=== PATIENT | male | born 1935 | race Caucasian/White ===

== ENCOUNTER 2019-12-19 13:51 | Emergency (ER) | payer MEDICARE, OTHER ==
[2019-12-19] MEDS ORDERED: Sodium Chloride 0.9% 10 ML Syringe FLUSH PRN ×2 (14:04)
[2019-12-19] MEDS ORDERED: Aspirin 325 MG Tab.EC PO ONE (14:05)
[2019-12-19] MEDS ORDERED: Sodium Chloride 0.9% 10 ML Syringe FLUSH ONE (14:07)
--- NOTE | 2019-12-19 14:10 | EDM.PDOC ---
ED HPI GENERAL MEDICAL PROBLEM - General Chief Complaint: Neurological Problem Stated Complaint: left arm & face numb Time Seen by Provider: 12/19/19 14:04 Source of Information: Reports: Patient, RN Notes Reviewed History Limitations: Reports: No Limitations - History of Present Illness INITIAL COMMENTS - FREE TEXT/NARRATIVE: 84-year-old gentleman presents emergency department with a complaint of left- sided weakness, he states the symptoms started approximately 2 hours prior when he had difficulty walking had some slurred speech at home as well. Presented to the emergency department for further evaluation. At this time he feels his speech has improved but he is having trouble with difficulty moving his left arm and he feels like he has difficulty getting his left leg to do what he intends - Related Data Allergies Allergy/AdvReac Type Severity Reaction Status Date / Time No Known Allergies Allergy Verified 12/19/19 14:24 Home Meds: Home Meds . [Unable to Verify Home Med List] 12/19/19 [History] Past Medical History Cardiovascular History: Reports: Afib, Hypertension Social & Family History - Tobacco Use Smoking Status *Q: Former Smoker ED ROS GENERAL - Review of Systems Review Of Systems: See Below Constitutional: Reports: No Symptoms HEENT: Reports: No Symptoms Respiratory: Reports: No Symptoms Cardiovascular: Reports: No Symptoms GI/Abdominal: Reports: No Symptoms : Reports: No Symptoms Musculoskeletal: Reports: No Symptoms Neurological: Reports: Numbness, Tingling, Trouble Speaking, Weakness (Left side) ED EXAM, NEURO - Physical Exam Exam: See Below Text/Narrative:: Cranial nerves II test with pupillary light reflex 4 mm to 2 mm bilaterally, CN III test pupillary constriction, lid elevation and eye abduction bilaterally, CN IV downward movement of eyes bilaterally, CN V good jaw movement, CN lateral deviation of the eyes bilaterally to finger movement, CN VII symmetrical smile shows teeth without difficulty, CN VIII pass finger rub to ears bilaterally, CN IX adequate voice and tone, CN X adequate voice and tone no difficulty swallowing, CN XI can shrug shoulders without difficulty, CN XII can stick tongue out without difficulty, cranial nerves II to XII intact as tested, power is 5 out 5 in upper and lower extremities, patellar reflex, biceps reflex +2 can do finger to nose however because of shoulder injury on the left side he has some difficulty with [id number] will demonstrate past-pointing, no dysdiadochokinesis, rapid alternating movements are sufficient on the right however slowed on the left , Romberg is negative, his gait is wide-based and shuffling, he does demonstrate a pronator drift on the left side Exam Limited By: No Limitations General Appearance: Alert, WD/WN, No Apparent Distress Throat/Mouth: Normal Inspection, Normal Lips, Normal Teeth, Normal Gums, Normal Oropharynx, Normal Voice, No Airway Compromise Head Exam: Atraumatic, Normocephalic Neck: Normal Inspection, Supple, Non-Tender, Full Range of Motion Respiratory/Chest: No Respiratory Distress, Lungs Clear, Normal Breath Sounds, No Accessory Muscle Use, Chest Non-Tender Cardiovascular: No Murmur, Irregularly Irregular GI/Abdominal: Soft, Non-Tender Course - Vital Signs Last Recorded V/S: Last Vital Signs Temp 97 F 12/19/19 14:17 Pulse 74 12/19/19 14:17 Resp 16 12/19/19 14:17 BP 135/75 12/19/19 14:17 Pulse Ox 99 12/19/19 14:17 - Orders/Labs/Meds Orders: Active Orders 24 hr Category Date Time Status EKG Documentation Completion [RC] ASDIRECTED Care 12/19/19 15:22 Active Peripheral IV Care [RC] . DIRECTED Care 12/19/19 14:05 Active Iopamidol [Isovue-370 (76%)] Med 12/19/19 14:15 Active 100 ml IV . DIRECTED Sodium Chloride 0.9% [Normal Saline] 100 ml Med 12/19/19 14:15 Active IV ASDIRECTED Sodium Chloride 0.9% [Saline Flush] Med 12/19/19 14:04 Active 10 ml FLUSH ASDIRECTED PRN Sodium Chloride 0.9% [Saline Flush] Med 12/19/19 14:04 Active 10 ml FLUSH ASDIRECTED PRN Peripheral IV Insertion Adult [OM.PC] Urgent Oth 12/19/19 14:04 Ordered EKG 12 Lead [EK] Stat Ther 12/19/19 15:22 Ordered Medication Orders Sodium Chloride (Normal Saline) 100 mls @ 3 mls/sec IV ASDIRECTED JEAN Iopamidol (Isovue-370 (76%)) 100 ml IV . DIRECTED JEAN Sodium Chloride (Saline Flush) 10 ml FLUSH ASDIRECTED PRN PRN Reason: Keep Vein Open Sodium Chloride (Saline Flush) 10 ml FLUSH ASDIRECTED PRN PRN Reason: Keep Vein Open Labs: Laboratory Tests 12/19/19 12/19/19 12/19/19 Range/Units 14:18 14:18 14:18 WBC 6.0 (4.5-11.0) K/uL RBC 4.49 (4.30-5.90) M/uL Hgb 13.3 (12.0-15.0) g/dL Hct 42.0 (40.0-54.0) % MCV 94 (80-98) fL MCH 30 (27-31) pg MCHC 32 (32-36) % Plt Count 169 (150-400) K/uL Neut % (Auto) 70 H (36-66) % Lymph % (Auto) 20 L (24-44) % Jennings % (Auto) 8 H (2-6) % Eos % (Auto) 1 L (2-4) % Baso % (Auto) 0 (0-1) % PT 24.1 H (9.5-12.0) sec INR 2.34 H (0.80-1.20) APTT 34.3 (27.0-36.0) sec Sodium 145 (140-148) mmol/L Potassium 3.6 (3.6-5.2) mmol/L Chloride 105 (100-108) mmol/L Carbon Dioxide 32 (21-32) mmol/L Anion Gap 8.3 (5.0-14.0) mmol/L BUN 24 H (7-18) mg/dL Creatinine 1.1 (0.8-1.3) mg/dL Est Cr Clr Drug Dosing 49.10 mL/min Estimated GFR (MDRD) > 60 (>60) Glucose 98 (74-106) mg/dL Calcium 8.8 (8.5-10.1) mg/dL Total Bilirubin 0.5 (0.2-1.0) mg/dL AST 22 (15-37) U/L ALT 30 (12-78) U/L Alkaline Phosphatase 81 (46-116) U/L Troponin I < 0.017 (0.000-0.056) ng/mL Total Protein 6.4 (6.4-8.2) g/dL Albumin 3.2 L (3.4-5.0) g/dL Globulin 3.2 (2.3-3.5) g/dL Albumin/Globulin Ratio 1.0 L (1.2-2.2) Meds: Medications Generic Name Dose Route Start Last Admin Trade Name Freq PRN Reason Stop Dose Admin Sodium Chloride 100 mls @ 3 mls/sec 12/19/19 14:15 Normal Saline IV ASDIRECTED JEAN Iopamidol 100 ml 12/19/19 14:15 Isovue-370 (76%) IV . DIRECTED JEAN Sodium Chloride 10 ml 12/19/19 14:04 Saline Flush FLUSH ASDIRECTED PRN Keep Vein Open Sodium Chloride 10 ml 12/19/19 14:04 Saline Flush FLUSH ASDIRECTED PRN Keep Vein Open Discontinued Medications Generic Name Dose Route Start Last Admin Trade Name Freq PRN Reason Stop Dose Admin Aspirin 325 mg 12/19/19 14:05 12/19/19 14:15 Ecotrin PO 12/19/19 14:06 325 mg ONETIME ONE Administration Sodium Chloride 10 ml 12/19/19 14:07 12/19/19 14:15 Saline Flush FLUSH 12/19/19 14:08 10 ml ONETIME ONE Administration Departure - Departure Time of Disposition: 15:58 Disposition: Home, Self-Care 01 Condition: Fair 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 - Discharge Information Referrals: PCP,None [Primary Care Provider] - Forms: ED Department Discharge Additional Instructions: Continue with your current medications, please follow-up with your primary care provider next 3 to 5 days for reevaluation call or return to the emergency department worsening of symptoms Sepsis Event Note (ED) - Focused Exam Vital Signs: Vital Signs Temp Pulse Resp BP Pulse Ox 12/19/19 14:17 97 F 74 16 135/75 99 12/19/19 14:02 97 F 74 16 135/75 99 - My Orders Last 24 Hours: My Active Orders 12/19/19 14:04 Sodium Chloride 0.9% [Saline Flush] 10 ml FLUSH ASDIRECTED PRN Sodium Chloride 0.9% [Saline Flush] 10 ml FLUSH ASDIRECTED PRN Peripheral IV Insertion Adult [OM.PC] Urgent 12/19/19 14:05 Peripheral IV Care [RC] . DIRECTED 12/19/19 14:15 Iopamidol [Isovue-370 (76%)] 100 ml IV . DIRECTED Sodium Chloride 0.9% [Normal Saline] 100 ml IV ASDIRECTED 12/19/19 15:22 EKG Documentation Completion [RC] ASDIRECTED EKG 12 Lead [EK] Stat - Assessment/Plan Last 24 Hours: My Active Orders 12/19/19 14:04 Sodium Chloride 0.9% [Saline Flush] 10 ml FLUSH ASDIRECTED PRN Sodium Chloride 0.9% [Saline Flush] 10 ml FLUSH ASDIRECTED PRN Peripheral IV Insertion Adult [OM.PC] Urgent 12/19/19 14:05 Peripheral IV Care [RC] . DIRECTED 12/19/19 14:15 Iopamidol [Isovue-370 (76%)] 100 ml IV . DIRECTED Sodium Chloride 0.9% [Normal Saline] 100 ml IV ASDIRECTED 12/19/19 15:22 EKG Documentation Completion [RC] ASDIRECTED EKG 12 Lead [EK] Stat Plan: Assessment Acuity = acute Site and laterality = old stroke recrudescence basal ganglia thalamic region right side Etiology = probable heat exhaustion and stress Manifestations = none Location of injury = Home Lab values = CBC, CMP, troponin within normal limits EKG demonstrates atrial fibrillation INR therapeutic at 2.34 CT scan does show an old stroke right basal ganglia thalamus region Plan Call discussed case with neurology on-call [facility] Dr. Dunn stroke neurology on-call at 1530 after describing physical exam findings and old CT scan with old stroke on the right side he felt this was recrudescence especially now being in a cool environment all of his symptoms have resolved. He is discharged home same medications did provide him a CT scan of his images he will follow-up with his primary care provider next 3 to 5 days for reevaluation This note was dictated using [employer] voice recognition software please call with any questions on syntax or grammar.
[2019-12-19] MEDS ORDERED: Iopamidol 755 Mg/ML 100 ML Bottle IV SCH (14:15)
[2019-12-19] MEDS ORDERED: Sodium Chloride 0.9% 100 ML IV SCH (14:15)
--- NOTE | 2019-12-19 14:41 | CRLCT ---
INDICATION: Left-sided weakness. Stroke protocol. TECHNIQUE: CT head without IV contrast. FINDINGS: Advanced atherosclerotic vascular calcifications. No intracranial hemorrhage, edema or mass effect. Moderate patchy abnormal low-density change in the white matter both cerebral hemispheres nonspecific but consistent with small vessel ischemic disease. Borderline moderate diffuse cerebral atrophy. Small old lacunar infarct in the right basal ganglia/thalamus on image 25. Borderline moderate cerebellar atrophy. Remainder negative. IMPRESSION: Mild to moderate chronic intracranial disease without acute intracranial disease identified. Findings as above. Please note that all CT scans at this facility use dose modulation, iterative reconstruction, and/or weight-based dosing when appropriate to reduce radiation dose to as low as reasonably achievable. Dictated by Marco Antonio Owens MD @ Dec 19 2019 2:39PM Signed by Dr. Marco Antonio Owens @ Dec 19 2019 2:39PM
== END 2019-12-19 16:14 | disposition home or self-care (01) ==
LOC: JP.ED 13:51
DX: I69.310 Attention and concentration deficit following cerebral infarction (principal); I48.91 Unspecified atrial fibrillation; I10 Essential (primary) hypertension; Z87.891 Personal history of nicotine dependence
CPT/HCPCS: 36415; 70450; 80053; 84484; 85025; 85610; 85730; 93005; 99285; A9270